=== PATIENT | male | born 1960 | race African-American/Black ===

== ENCOUNTER 2025-03-12 09:27 | Emergency (ER) | payer MEDICARE, SELFPAY ==
--- NOTE | 2025-03-12 | ECG_ITS ---
Test Reason : abnomal ekg Blood Pressure : */* mmHG Vent. Rate : 86 BPM Atrial Rate : 86 BPM P-R Int : 206 ms QRS Dur : 70 ms QT Int : 372 ms P-R-T Axes : 65 51 60 degrees QTcB Int : 445 ms Normal sinus rhythm Septal infarct , age undetermined Abnormal ECG No previous ECGs available Referred By: Generic ED Physician Electronically Signed By: MOMO GREGORIO MD
[2025-03-12 09:41] VITALS: BP 128/63; PULSE 83; RESP 18; TEMP 36.8; O2SAT 99; BMI 33.0
--- NOTE | 2025-03-12 09:57 | ED_ITS ---
HPI - Chest Pain General Chief Complaint: Chest Pain Stated Complaint: EKG Requested From Primary Time Seen by Provider: 03/12/25 09:54 Source: patient Mode of arrival: ambulatory Limitations: no limitations History of Present Illness ED Provider: LACHO JAEGER PA-C HPI narrative: 65 year old male with pmhx significant for T1DM, HTN, HLD presents to the ED today for abdominal pain x 1 week. Reports pain to his epigastric region that wraps around to his back in a band like fashion. Patient reports waking up with the pain approximately 1 week ago. Pain has been intermittent. No clear exacerbating or relieving factors. States he typically wakes up feeling well and develops epigastric pain throughout the day. He was seen at urgent care for this yesterday. He was informed that his EKG looked abnormal and he was advised to come to the ED for further evaluation/blood work. He contacted his primary care office this morning to schedule an appointment however they also informed him to come to the emergency department. He reports discomfort to his epigastric region at present. He has not trialed any [id number] pain meds for this. He states it feels almost like a gas pain. Denies any history of abdominal surgeries. Denies fever, chills, chest pain, shortness of breath, palpitations, cough, nausea/vomiting/diarrhea, constipation, urinary symptoms. Denies EtOH consumption. Reports smoking approximately half pack of cigarettes daily x20 years. Related Data Previous Rx's ?Medication ?Instructions ?Recorded aluminum-mag hydroxide-simethicone 10 ml PO Q6H PRN dy spepsia #3,000 03/12/25 200 mg-200 mg-20 mg/5 mL oral susp mL Allergies Allergy/AdvReac Type Severity Reaction Status Date / Time No Known Allergies Allergy Verified 03/12/25 09:47 Review of Systems 2 Review of Systems: Yes all other systems are reviewed and are negative PMFSH Past Medical History Attestation statement: The following information was validated with the patient. Source: old records reviewed and nursing notes reviewed Social History Social History Smoked in Last 30 Days: Yes Use of substances other than those prescribed or required for medical reasons: No Advance Directives: No Advance Directives Information Provided: Yes Physical Exam 2 Vital Signs: Vital Signs: Last Vital Signs Temp 98.1 F 03/12/25 13:50 Pulse 69 03/12/25 13:50 Resp 16 03/12/25 13:50 BP 136/78 03/12/25 13:50 Pulse Ox 98 03/12/25 13:50 O2 Del Method Room Air 03/12/25 13:50 BMI result Body Mass Index 33.0 vital signs stable General: Well appearing, in no acute distress. Skin: Warm, dry, intact. No rashes or lesions. Head: Normocephalic, atraumatic. EENT: Hearing is intact b/l. Conjunctiva clear. PERRLA. EOM intact. Moist mucous membranes.? Neck: Supple without LAD Cardiac: Chest wall symmetric. RRR Lungs: Normal respiratory effort without accessory muscle use. CTA bilaterally. No rales, rhonchi, or wheezes.? Abdomen: Soft, non-tender, non-distended. No rebound tenderness or guarding. Positive BS x4. Back: No midline spinous or paraspinal tenderness. No step off deformity. Ext: no pitting edema, no calf tenderness bilaterally. Neuro: AOx3. Normal speech. Ambulating with steady gait. Psych: Appropriate mood and affect. Responds appropriately to questions. Course Course Course Narrative: CBC without leukocytosis or left shift. Microcytic anemia, H and H above transfusion threshold. No priors to compare to. No thrombocytopenia. Chemistry without acute electrolyte abnormality requiring intervention. No CORY. Random glucose 328, no anion gap. Liver function WNL. Troponin WNL x2. EKG showing normal sinus rhythm without acute ischemic changes or ST elevations. ACS unlikely. > patient treated with GI cocktail (, Maalox and Zofran) along with IV fluids with complete resolution in epigastric discomfort. > will discharge home with meds and outpatient follow up. no indication for imaging at this time as I am not concerned for any acute intraabdominal pathology. Patient has remained stable throughout ED visit today. Discussed worrisome signs and symptoms and when to return to the ED. All questions answered at this time. Patient is agreeable with disposition and stable for discharge. Medications Administered Discontinued Medications Generic Name Dose Route Start Last Admin Trade Name Freq PRN Reason Stop Dose Admin Al Hydroxide/Mg Hydroxide 30 ml 03/12/25 11:36 03/12/25 11:43 Magnesium Hydrox/Alum Hydrox 30 Ml Oral.Susp PO 03/12/25 11:37 30 ml ONCE ONE Administration Belladonna Alkaloids/Phenobarbital 10 ml 03/12/25 11:36 03/12/25 11:43 Phenobarb/Hyoscy/Atropine/Scop 10 Ml Elixir PO 03/12/25 11:37 10 ml ONCE ONE Administration Sodium Chloride 1,000 mls @ 999 mls/hr 03/12/25 11:45 03/12/25 13:22 Ns IV 03/12/25 12:45 Infused .Q1H1M CHIKI Infusion Sodium Chloride 1,000 mls @ 999 mls/hr 03/12/25 13:00 03/12/25 14:29 Ns IV 03/12/25 14:00 Infused .Q1H1M CHIKI Infusion Ondansetron HCl 4 mg 03/12/25 11:36 03/12/25 11:43 Ondansetron Odt 4 Mg Tab.Rapdis TRANSLINGU 03/12/25 11:37 4 mg ONCE ONE Administration Medical Decision Making Medical Decision Making [facility] Narrative: 65 year old male with pmhx significant for T1DM, HTN, HLD presents to the ED today for abdominal pain x 1 week. Differential diagnosis includes biliary colic, gastroenteritis, gastritis, PUD, GERD. I have also considered ACS and PE - less likely. Abdominal exam without peritoneal signs. No evidence of acute abdomen at this time. Well appearing. Moderate suspicion for acute hepatobiliary disease (including acute cholecystitis). Less likely to represent acute pancreatitis, perforated ulcer/ GI bleed, acute infectious processes (pneumonia, hepatitis, pyelonephritis), atypical appendicitis, vascular catastrophe, bowel obstruction or viscus perforation. Presentation not consistent with other acute, emergent causes of abdominal pain at this time. Plan: labs, UA, GI cocktail, serial reassessment Differential Diagnosis Differential Diagnoses: The differential diagnosis associated with the presentation includes as above. Admission/Observation not indicated. Lab Data [facility] Lab Attestation statement: I reviewed the patient's lab results. as above. 03/12/25 10:03 03/12/25 10:03 Labs: Lab Results 03/12/25 03/12/25 Range/Units 10:03 11:51 WBC 7.9 (4.8-10.8) X10*3/uL RBC 5.05 (4.60-5.80) X10*6/uL Hgb 11.2 L (14.0-18.0) g/dl Hct 34.6 L (42.0-52.0) % MCV 68.5 L (80.0-98.0) fL MCH 22.2 L (27.0-33.0) pg MCHC 32.4 (31.0-36.0) g/dl RDW 15.1 (11.0-16.0) % Plt Count 325 (160-400) X10*3/uL MPV 10.6 (9.4-12.4) fL Immature Gran % (Auto) 0.3 (0.0-0.4) % Neut % (Auto) 67.0 (45-73) % Lymph % (Auto) 19.3 L (20-40) % [place] % (Auto) 9.5 (2-11) % Eos % (Auto) 3.3 (0-4) % Baso % (Auto) 0.6 (0-2) % Lymph # (Auto) 1.5 (1.2-4.9) X10*3/uL [place] # (Auto) 0.8 (0.1-1.2) X10*3/uL Eos # (Auto) 0.3 (0.0-0.4) X10*3/uL Baso # (Auto) 0.1 (0.0-0.2) X10*3/uL Abs Immat Gran (auto) 0.02 (0.00-0.03) X10*3/uL Absolute Neuts (auto) 5.3 (2.0-8.3) x10*3/uL Absolute Nucleated RBC 0.000 (0.0-0.012) X10*3/uL Nucleated RBC % (auto) 0.0 (0.0-0.2) /100WBC Sodium 139 (135-145) mmol/L Potassium 4.1 (3.3-5.1) mmol/L Chloride 106 (96-108) mmol/L Carbon Dioxide 24 (22-29) mmol/L Anion Gap 13 (12-20) BUN 17 H (9-16) mg/dL Creatinine 1.38 (0.5-1.4) mg/dL Estim Creat Clear Calc 59.8 Estimated GFR 52 Random Glucose 328 H (60-115) mg/dL Calcium 9.5 (8.4-10.2) mg/dL Magnesium 1.9 (1.6-2.6) mg/dL Total Bilirubin 0.6 (0.0-1.0) mg/dL AST 22 (5-37) U/L ALT 22 (0-40) U/L Alkaline Phosphatase 74 (39-117) U/L Troponin I High Sens 3.2 3.0 (<3.5-35.0) ng/L Total Protein 7.3 (6.5-8.0) g/dL Albumin 4.1 (3.5-5.0) g/dL Lipase 14 (8-78) U/L Independent Interpretation I performed an independent interpretation of an: EKG Interpretation: EKG showing normal sinus rhythm, rate of 86 beats per minute, no acute ischemic changes or ST elevations Prescription Management I considered prescription management with: Other (maalox) Chronic Conditions Patient?s care impacted by: Diabetes and Hypertension Social Determinants Patient?s care significantly limited by Social Determinants of Health including: Other Social Determinant of Health Critical Care Time Critical Care Time Critical Care Time: No Discharge Plan Discharge Clinical Impression: Epigastric abdominal pain Patient Disposition: Home, Self-Care Instructions: GERD (Gastroesophageal Reflux Disease) (ED), Abdominal Pain (ED) Additional Instructions: You were evaluated in the ED today for upper abdominal pain. Your blood work is reassuring. Your heart enzyme is normal x2. Your EKG is reassuring. Your symptoms improved with medications today. I am sending Maalox to your pharmacy. You may take this as needed for discomfort. Please follow up with your primary care provider. Return with any new or worsening symptoms. In the case of an emergency call 911. Prescriptions: New alum-mag hydroxide-simeth 200-200-20 mg/5 mL suspension 10 ml PO Q6H PRN (Reason: dyspepsia) Qty: 3000 0RF Ref[place]: [facility] [place]Provider Group, [facility]astroenterology] Physician,Unknown J [Primary Care Provider, Medical] Interventions: ED Discharge Assessment Last Done: 03/12/25 13:50 Discharge Date/Time: 03/12/25 14:30 Print Language: French
[2025-03-12 10:07] LABS: MANUAL DIFF FLAG NO
[2025-03-12 10:14] LABS: Hematocrit 34.6 % (42.0-52.0); Hemoglobin 11.2 g/dl (14.0-18.0); Imm Gran Abs Auto 0.02 X10*3/uL (0.00-0.03); Imm Gran Pct Auto 0.3 % (0.0-0.4); Lymphocytes Absolute Auto 1.5 X10*3/uL (1.2-4.9); Mean Corpuscular HGB Conc 32.4 g/dl (31.0-36.0); Mean Corpuscular Hemoglobin 22.2 pg (27.0-33.0); Mean Corpuscular Volume 68.5 fL (80.0-98.0); NRBC Abs Auto 0.000 X10*3/uL (0.0-0.012); NRBC Pct Auto 0.0 /100WBC (0.0-0.2); Platelet Count 325 X10*3/uL (160-400); Red Blood Count 5.05 X10*6/uL (4.60-5.80); White Blood Count 7.9 X10*3/uL (4.8-10.8)
[2025-03-12 10:16] VITALS: BP 133/89; PULSE 76; RESP 20; O2SAT 97
[2025-03-12 10:28] LABS: Sodium 139 mmol/L (135-145)
[2025-03-12 10:29] LABS: Alanine Aminotransferase 22 U/L (0-40); Albumin Level 4.1 g/dL (3.5-5.0); Alkaline Phosphatase 74 U/L (39-117); Anion Gap 13 (12-20); Aspartate Amino Transferase 22 U/L (5-37); Blood Urea Nitrogen 17 mg/dL (9-16); Calcium 9.5 mg/dL (8.4-10.2); Carbon Dioxide 24 mmol/L (22-29); Chloride 106 mmol/L (96-108); Creatinine Clr Calc Pharmacy 59.8; Estimated Glomerular Filt Rate 52; Magnesium 1.9 mg/dL (1.6-2.6); Potassium 4.1 mmol/L (3.3-5.1); Total Protein 7.3 g/dL (6.5-8.0)
[2025-03-12 10:37] LABS: Troponin-I High Sensitivity 3.2 ng/L (<3.5-35.0)
[2025-03-12 11:38] LABS: Lipase 14 U/L (8-78)
[2025-03-12] MEDS: PHENobarb/Hyoscy/Atropine/Scop 10 ML ELIXIR PO (11:43)
[2025-03-12] MEDS: Magnesium Hydrox/Alum Hydrox 30 ML ORAL.SUSP PO (11:43)
[2025-03-12 12:21] LABS: Troponin-I High Sensitivity 3.0 ng/L (<3.5-35.0)
[2025-03-12 13:50] VITALS: BP 136/78; PULSE 69; RESP 16; TEMP 36.7; O2SAT 98
== END 2025-03-12 14:30 | disposition home or self-care (01) ==
PROVIDERS: Physician Assistant Medical; Emergency Provider Emergency Medicine
DX: R10.13 Epigastric pain (principal); R07.89 Other chest pain; R11.0 Nausea; M54.50 Low back pain, unspecified; Z79.899 Other long term (current) drug therapy
CPT/HCPCS: 36415; 80053; 83690; 83735; 84484; 85025; 93005; 96360; 96361; 99284; 99285

== ENCOUNTER → 2025-03-12 09:33 | Outpatient (BNV) | payer MEDICARE, SELFPAY | PROVIDERS: Emergency Provider Emergency Medicine; Visit Provider Internal Medicine Cardiovascular Disease | DX: R94.31 Abnormal electrocardiogram [ECG] [EKG] (principal) | CPT/HCPCS: 93010 ==